=== PATIENT | female | born 1960 | race Caucasian/White ===

== ENCOUNTER 2019-02-26 15:18 | Emergency (ER) | payer MEDICARE, MEDICAID ==
[~2019-02-26] VITALS: Ht 160 cm; Wt 80.0 kg
[2019-02-26] MEDS ORDERED: LEVOTHYROXIN0.075 MG PO (15:36)
[2019-02-26] MEDS ORDERED: COUMADIN 22.5 MG/TAB PO (15:37)
[2019-02-26] MEDS ORDERED: LIPITOR 10M10 MG/TAB (15:37)
[2019-02-26] MEDS ORDERED: NEXIUM20 MG (15:37)
[2019-02-26 16:33] LABS: EOS # 0.2 (0.04-0.40); EOS % 2.2 % (1.0-5.0); HEMATOCRIT 42.2 % (37.0-47.0); HEMOGLOBIN 13.3 g/dL (12.5-16.0); LYMPH# 3.2 (1.50-4.00); MEAN CELL VOLUME 83 fl (78-100); MEAN CORPUSCULAR HEMOGLOBIN 26 pg (27-31); MEAN CORPUSCULAR HGB CONC 32 g/dL (33-37); MEAN PLATELET VOLUME 9.9 fl (7.4-10.4); MONO # 0.8 (0.20-0.80); PLATELET COUNT 385 K/mm3 (130-400); RED BLOOD COUNT 5.09 M/mm3 (4.10-5.30); RED CELL DISTRIBUTION WIDTH 14.9 % (11.5-14.5); WHITE BLOOD COUNT 9.2 K/mm3 (4.8-10.8)
[2019-02-26] MEDS ORDERED: TESSALON PERLE100 M1 PO (18:12)
[2019-02-26 18:31] VITALS: BP 140/85
== END 2019-02-26 18:32 | disposition home or self-care (01) ==
LOC: ED 15:18
PROVIDERS: Family Medicine
DX: R05 Cough (principal); K44.9 Diaphragmatic hernia without obstruction or gangrene; K21.9 Gastro-esophageal reflux disease without esophagitis; Z79.01 Long term (current) use of anticoagulants; Z86.718 Personal history of other venous thrombosis and embolism; Z98.890 Other specified postprocedural states

== ENCOUNTER 2019-04-23 10:41 | Emergency (ER) | payer MEDICARE, MEDICAID ==
[~2019-04-23] VITALS: Ht 160 cm; Wt 75.9 kg
[~2019-04-23 10:41] MED LIST: COUMADIN 22.5 MG/TAB PO; LEVOTHYROXIN0.075 MG PO; LIPITOR 10M10 MG/TAB; NEXIUM20 MG; TESSALON PERLE100 M1 PO
[2019-04-23] MEDS ORDERED: ATORVASTATIN CA40 MG PO (11:02)
[2019-04-23] MEDS ORDERED: ESOMEPRAZOLE MA40 M1 PO (11:03)
[2019-04-23] MEDS ORDERED: SINGULAIR 110 MG/TAB PO (11:03)
[2019-04-23 11:23] LABS: EOS % 0.3 % (1.0-5.0); HEMATOCRIT 45.5 % (37.0-47.0); HEMOGLOBIN 14.6 g/dL (12.5-16.0); LYMPH# 1.7 (1.50-4.00); MEAN CELL VOLUME 82 fl (78-100); MEAN CORPUSCULAR HEMOGLOBIN 26 pg (27-31); MEAN CORPUSCULAR HGB CONC 32 g/dL (33-37); MONO # 1.1 (0.20-0.80); NEU # 6.5 (1.40-6.50); PLATELET COUNT 343 K/mm3 (130-400); RED BLOOD COUNT 5.58 M/mm3 (4.10-5.30); RED CELL DISTRIBUTION WIDTH 15.7 % (11.5-14.5); WHITE BLOOD COUNT 9.4 K/mm3 (4.8-10.8)
[2019-04-23] MEDS ORDERED: GUAIFEN-CODEINE5 ML PO (11:55)
[2019-04-23 14:11] VITALS: BP 118/67
== END 2019-04-23 14:20 | disposition home or self-care (01) ==
LOC: ED 10:41
PROVIDERS: Family Medicine
DX: J10.1 Influenza due to other identified influenza virus with other respiratory manifestations (principal); K21.9 Gastro-esophageal reflux disease without esophagitis; Z79.01 Long term (current) use of anticoagulants; Z86.73 Personal history of transient ischemic attack (TIA), and cerebral infarction without residual deficits; Z96.652 Presence of left artificial knee joint
CPT/HCPCS: J7030